=== PATIENT | female | born 1990 | race African-American/Black ===

== ENCOUNTER 2016-12-16 15:00 | Emergency (ER) | payer MEDICAID ==
--- NOTE | 2016-12-19 12:11 | ER ---
ADMIT: 12/16/2016 RM/LOC: ER [facility] MR#: [id number] [id number] [place], [place] [id number] ANNA QUESADA [address] [address] [place] [address] Emergency Room Report SEX: F AGE: 26 : 1990 DATE: 12/16/2016 A 26-year-old female who comes with 2-3 days of sore throat, cough, body aches, fevers, chills. See T-sheet for history and physical. She is , and her influenza B is positive. Her diagnosis is influenza. Instructed to use Tylenol for body aches and fevers, to stay away from work until her symptoms resolve. Howard Mendoza MD/ lidia JOB #: [id number] CC: Howard Mendoza MD, Attending Physician
== END 2016-12-16 16:15 | disposition home or self-care (01) ==
LOC: ER 15:00
DX: J11.1 Influenza due to unidentified influenza virus with other respiratory manifestations (principal)

== ENCOUNTER 2017-03-22 14:30 | Outpatient (CLI) | payer MEDICAID ==
[~2017-03-22] VITALS: Ht 170.2 cm; Wt 67.6 kg
== END 2017-03-22 15:50 | disposition home or self-care (01) ==
LOC: 2LDRP 14:30 → BC 14:30 → 2LDRP 14:31 → BC 15:50
DX: O36.8130 Decreased fetal movements, third trimester, not applicable or unspecified (principal); Z3A.29 29 weeks gestation of pregnancy